=== PATIENT | female | born 1980 | race African-American/Black ===

== ENCOUNTER 2016-06-25 08:13 | Outpatient (RCR) | payer OTHER ==
[~2016-06-25 08:13] MED LIST: ASPIRIN E.C. 8181 MG PO; BACTRIM DS 8001 TAB PO; GLUCOPHAGE500 MG/TAB PO; HCTZ 25MG TAB25 MG PO; LANTUS100 U/ML SQ; MOTRIN 800800 MG/TAB PO; NEURONTIN100 MG/CAP PO; NO HOME MEDICATIONS; PRINIVIL20 MG PO; VITAMIN D1000 IU PO
== END 2016-08-05 ==
LOC: WSOH
DX: M54.9 Dorsalgia, unspecified (principal)